=== PATIENT | female | born 1965 | race Caucasian/White ===

== ENCOUNTER 2018-03-14 10:55 | Emergency (ER) | payer OTHER, SELFPAY ==
[~2018-03-14] VITALS: Ht 167.6 cm; Wt 67.9 kg
[2018-03-14 11:04] VITALS: BP 120/86
[2018-03-14] MEDS ORDERED: HYDROcodone/APAP 5/325 TABLET ONE (11:38)
[2018-03-14] MEDS ORDERED: HYDROcodone/APAP 5/325 TABLET PO ONE (12:00)
== END 2018-03-14 11:51 | disposition home or self-care (01) ==
LOC: ED 11:45
DX: H60.502 Unspecified acute noninfective otitis externa, left ear (principal); H60.12 Cellulitis of left external ear; J01.00 Acute maxillary sinusitis, unspecified; Z88.0 Allergy status to penicillin
CPT/HCPCS: 99283